=== PATIENT | female | born 1965 ===

== ENCOUNTER 2025-06-01 07:00 | Inpatient (IN) | payer OTHER ==
[~2025-06-01] VITALS: Ht 154.9 cm; Wt 78.9 kg
[2025-06-01] MEDS ORDERED: NEURONTIN300 MG PO (08:26)
[2025-06-01] MEDS ORDERED: SULINDAC150 MG (08:26)
[2025-06-01] MEDS ORDERED: SIMVASTATIN5 MG (08:27)
[2025-06-01 08:44] LABS: BASO % 0.5 % (0.1-1.2); EOS # 0.14 (0.04-0.54); EOS % 2.2 % (0.7-7.0); LYMPH # 1.93 (1.18-3.74); LYMPH % 29.7 % (19.3-53.1); MEAN PLATELET VOLUME 10.70 fl (9.4-12.4); MONO # 0.44 (0.24-0.82); MONO % 6.8 % (4.7-12.5); NEUT # 3.93 (1.56-6.13); NEUT % 60.5 % (34.0-71.1); RED CELL DISTRIBUTION WIDTH 13.2 % (11.6-14.4)
[2025-06-01 08:50] VITALS: BP 128/82
[2025-06-01 09:07] LABS: URINE APPEARANCE Clear; URINE BILIRRUBIN Negative (NEGATIVE); URINE BLOOD Negative; URINE COLOR Yellow; URINE GLUCOSE Negative (NEGATIVE); URINE KETONE Negative (NEGATIVE); URINE LEUKOCYTE Negative; URINE NITRATE Negative; URINE PROTEIN 30 (NEGATIVE); URINE UROBILINOGEN 1.0 E.U./dl
[2025-06-01 09:11] LABS: COVID-19 AG NEGATIVE (NEGATIVE)
[2025-06-01 09:12] LABS: URINE BACTERIA 1438.7 uL (0.0-1933); URINE EPITHELIAL CELLS 6.6 uL (0.0-38.8); URINE RBC 7.6 uL (0.0-20.8); URINE WBC 11.2 uL (0.0-23.2)
[2025-06-01 09:15] LABS: URINE CAST 0.14 uL (0.0-1.40)
[2025-06-01 09:26] LABS: INR < 0.93
[2025-06-01 09:27] LABS: ALT/SGPT 16.0 U/L (12-78); AST/SGOT 15.0 U/L (15-37); BILIRUBIN TOTAL 0.31 mg/dL (0.3-1.2); BUN CREA RATIO 25.0 (7.0-25.0); CHOL HDL RATIO 2.7 (0-5.0); CREATININE SERUM 0.75 mg/dL (0.55-1.02); GFR 78.56; GLOBULINA 3.4 G/DL (2.4-3.5); GLUCOSE FASTING 107.0 mg/dL (65-100); HDL 73.0 mg/dl (40-60); LDL 91.0 mg/dl (0-130); OSMOLALITY SERUM 288.0 MOSM/KG (275-295); VLDL 35.0 (0-39)
[2025-06-07] MEDS ORDERED: TRANEXAMIC ACID 100MG/1ML (1000MG) AMPUL ONE (10:10)
[2025-06-07] MEDS ORDERED: CEFAZOLIN SODIUM 1,000 MG VIAL ONE (10:10)
[2025-06-07] MEDS ORDERED: VANCOMYCIN HCL 1,000 MG VIAL ONE (14:58)
[2025-06-07] MEDS ORDERED: OxyCODONE HCL 5 MG TABLET (ROXICODONE) PO PRN (17:15)
[2025-06-07] MEDS ORDERED: ONDANSETRON HCL 2 MG/ML VIAL IV PRN (17:15)
[2025-06-07] MEDS ORDERED: SODIUM CHLORIDE 0.45 % 1,000 ML IV SCH (17:15)
[2025-06-07] MEDS ORDERED: MORPHINE SULFATE 4 MG/ML VIAL IV PRN (17:15)
[2025-06-07] MEDS ORDERED: ACETAMINOPHEN 500 MG GEL..CAP PO SCH (18:00)
[2025-06-07 21:41] VITALS: BP 121/71; O2SAT 98
[2025-06-07 23:50] VITALS: BP 130/74; O2SAT 96
[2025-06-08] MEDS ORDERED: GABAPENTIN 300 MG CAPSULE PO SCH (01:00)
[2025-06-08] MEDS ORDERED: CEFAZOLIN SODIUM 1,000 MG VIAL IV SCH (01:00)
[2025-06-08 05:23] LABS: BASO % 0.3 % (0.1-1.2); EOS # 0.04 (0.04-0.54); EOS % 0.5 % (0.7-7.0); LYMPH # 1.45 (1.18-3.74); LYMPH % 18.5 % (19.3-53.1); MEAN PLATELET VOLUME 10.50 fl (9.4-12.4); MONO # 0.51 (0.24-0.82); MONO % 6.5 % (4.7-12.5); NEUT # 5.78 (1.56-6.13); NEUT % 73.8 % (34.0-71.1); RED CELL DISTRIBUTION WIDTH 13.2 % (11.6-14.4)
[2025-06-08] MEDS ORDERED: PERCOCET 5-3251 EACH PO (07:57)
[2025-06-08] MEDS ORDERED: DUI500 PO (07:57)
[2025-06-08] MEDS ORDERED: ELIQUIS2.5 MG PO (07:57)
[2025-06-08 08:00] VITALS: BP 100/62; O2SAT 96
[2025-06-08] MEDS ORDERED: SENNOSIDES 1 TAB TABLET PO SCH (09:00)
[2025-06-08] MEDS ORDERED: APIXABAN 2.5 MG TABLET PO SCH (09:00)
[2025-06-08 14:11] LABS: COVID-19 AG NEGATIVE (NEGATIVE)
[2025-06-08 16:00] VITALS: BP 138/75; O2SAT 95
[2025-06-08] MEDS ORDERED: SOD FERRIC GLUC COMPLX/SUCROSE 62.5 MG/5 ML AMPUL IV SCH (17:00)
[2025-06-08] MEDS ORDERED: Cyanocobalamin/Mecobalamin 1 TAB.SL SL SCH (17:00)
[2025-06-09 00:30] VITALS: BP 125/67; O2SAT 98
[2025-06-09 06:25] LABS: BASO % 0.3 % (0.1-1.2); EOS # 0.04 (0.04-0.54); EOS % 0.3 % (0.7-7.0); LYMPH # 1.28 (1.18-3.74); LYMPH % 11.1 % (19.3-53.1); MEAN PLATELET VOLUME 10.70 fl (9.4-12.4); MONO # 0.65 (0.24-0.82); MONO % 5.6 % (4.7-12.5); NEUT # 9.54 (1.56-6.13); NEUT % 82.4 % (34.0-71.1); RED CELL DISTRIBUTION WIDTH 13.2 % (11.6-14.4)
[2025-06-09 08:57] VITALS: BP 113/74; O2SAT 95
[2025-06-09] MEDS ORDERED: IRON FUM,PS/FOLIC ACID/VITC/B3 1 CAP CAPSULE PO SCH (09:00)
[2025-06-09 16:12] VITALS: BP 101/68; O2SAT 95
[2025-06-10 00:32] VITALS: BP 123/81; O2SAT 96
[2025-06-10 08:44] VITALS: BP 125/83; O2SAT 96
== END 2025-06-10 22:03 | DRG 470 ==
LOC: SURH 06-07 07:00 → O/R 06-07 09:00 → SURH 06-07 18:32
PROVIDERS: ADMIT Orthopaedic Surgery; ATTEND Orthopaedic Surgery
PROC: 0MBM0ZZ Excision of Left Hip Bursa and Ligament, Open Approach (ICD-10-PCS; 2025-06-07)
PROC: 0SRB0JZ Replacement of Left Hip Joint with Synthetic Substitute, Open Approach (ICD-10-PCS; principal; 2025-06-07 08:15)
DX: M16.12 Unilateral primary osteoarthritis, left hip (principal); M70.62 Trochanteric bursitis, left hip; M25.652 Stiffness of left hip, not elsewhere classified